=== PATIENT | male | born 1980 | race African-American/Black ===

== ENCOUNTER 2018-08-03 14:08 | Emergency (ER) | payer OTHER ==
[2018-08-03 14:26] VITALS: BP 139/76; TEMP 98.7; BMI 28.2
--- NOTE | 2018-08-03 14:26 | PDOC ---
Rapid Medical Evaluation Chief Complaint: Rectal Bleed Time Seen by Provider: 08/03/18 14:24 Medical Evaluation: Allergies Allergy/AdvReac Type Severity Reaction Status Date / Time No Known Drug Allergies Allergy Verified 08/03/18 14:24 08/03/18 14:24 I performed a brief in-person evaluation of this patient. Chief complaint: Right 4th finger injury while playing soccer last Friday. Also c/o rectal pain and intermittent bright red rectal bleeding since summer. Pertinent physical exam findings: Right 4th finger swelling and limited ROM. HR 47-52. I have ordered the following: Right hand xray. Patient to proceed to the ED for further evaluation. Discharge Disposition - Diagnosis Finger pain, right, Rectal bleeding - Referrals - Patient Instructions - Post Discharge Activity
[2018-08-03 14:27] VITALS: PULSE 52
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
== END 2018-08-03 16:05 | disposition home or self-care (01) ==
LOC: JERFT 14:08
DX: S63.634A Sprain of interphalangeal joint of right ring finger, initial encounter (principal); W51.XXXA Accidental striking against or bumped into by another person, initial encounter; Y93.66 Activity, soccer; Y92.322 Soccer field as the place of occurrence of the external cause; Y99.8 Other external cause status; K64.4 Residual hemorrhoidal skin tags
CPT/HCPCS: 73140-TC-RT-FY; 99281-25

== ENCOUNTER 2023-02-23 11:14 | Emergency (ER) | payer OTHER ==
[2023-02-23 11:20] VITALS: BP 145/89; PULSE 81; RESP 18; TEMP 97; BMI 30.8
[2023-02-23] MEDS ORDERED: CYCLOBENZAPRINE HCL 10 MG TABLET (FP) PO ONE (15:54)
[2023-02-23] MEDS ORDERED: CYCLOBENZAPRINE HCL 10 MG TABLET (FP) ONE (16:12)
== END 2023-02-23 16:40 | disposition home or self-care (01) ==
LOC: JERFT 11:14 → JER 11:14 → JERFT 16:40
DX: R07.89 Other chest pain (principal); M54.50 Low back pain, unspecified; V89.2XXA Person injured in unspecified motor-vehicle accident, traffic, initial encounter
CPT/HCPCS: 71046-TC-FY; 99283-25